=== PATIENT | female | born 1950 | race Caucasian/White ===

== ENCOUNTER → 2019-06-28 | Outpatient (CLI) | payer OTHER | END | disposition home or self-care (01) | LOC: RAH 15:45 | PROVIDERS: ATTEND Nurse Practitioner Family | DX: Z12.31 Encounter for screening mammogram for malignant neoplasm of breast (principal) | CPT/HCPCS: 77067 ==

== ENCOUNTER 2019-08-06 09:52 | Observation (INO) | payer OTHER ==
[~2019-08-06] VITALS: Ht 165.1 cm; Wt 83.9 kg
[2019-08-06 10:24] LABS: BASOPHILS % (AUTO) 0.4 % (0.0-5.0); HEMATOCRIT 41.2 % (36-48); MEAN CORPUSCULAR HGB CONC 34.9 g/dL (32.0-36.0); MONOCYTES % (AUTO) 6.4 % (3.0-13.0); NEUTROPHILS % (AUTO) 77.2 % (40.0-77.0); PLATELET COUNT (AUTO) 186 K/uL (130-400); RED CELL DISTRIBUTION WIDTH 13.7 % (11.0-15.5); WHITE BLOOD COUNT (AUTO) 8.3 K/uL (4.8-10.8)
[2019-08-06 10:33] LABS: CREATININE 0.9 mg/dL (0.5-1.5); POTASSIUM 3.8 mmol/L (3.5-5.1)
[2019-08-06 10:35] LABS: INR 0.97 (0.85-1.15); PARTIAL THROMBOPLASTIN TIME 26.7 SEC (26.3-35.5); PROTHROMBIN TIME 10.2 SEC (9.6-11.6)
[2019-08-06 10:40] LABS: ALBUMIN 4.1 g/dL (3.5-5.0); BILIRUBIN,TOTAL 0.4 mg/dL (0.2-1.0); TOTAL PROTEIN, SERUM 7.9 g/dL (6.0-8.3)
[2019-08-06] MEDS ORDERED: MORPHINE SULFATE 4 MG/1ML SYG ONE (10:53)
[2019-08-06] MEDS ORDERED: IOHEXOL-350 75 ML VIAL IV ONE (15:10)
[2019-08-06] MEDS ORDERED: HYDRALAZINE HCL 20 MG/ML VIAL IV PRN (16:30)
[2019-08-06] MEDS ORDERED: ACETAMINOPHEN 325 MG TAB PO PRN (16:30)
[2019-08-06] MEDS ORDERED: ONDANSETRON HCL 4 MG/2 ML VIAL IV PRN (16:30)
[2019-08-06] MEDS ORDERED: MORPHINE SULFATE 2 MG/ML 1ML SYG IV PRN (16:30)
[2019-08-06 16:48] LABS: CHOLESTEROL 198 mg/dL (<200); HDL CHOLESTEROL 40 mg/dL (35-85); LDL DIRECT 139 mg/dL (0-99); TRIGLYCERIDES 130 mg/dL (30-200)
[2019-08-06 16:56] LABS: CREATINE KINASE, TOTAL 71 U/L (21-232); MYOGLOBIN 41 ng/mL (10-92); TROPONIN I < 0.04 ng/mL (0.00-0.06)
[2019-08-06 19:37] LABS: HEMOGLOBIN A1C 5.4 % (4.0-6.0)
[2019-08-06] MEDS ORDERED: ONDANSETRON HCL 4 MG/2 ML VIAL ONE (20:28)
[2019-08-06 21:00] VITALS: BP 149/78
--- NOTE | 2019-08-06 21:00 | NUR ---
NURSING NOTE pt arrived to floor.Pt admitted for CP to rule out ACS. pt denies any chest pain or SOB at this time.
[2019-08-06] MEDS: ASPIRIN 325 MG TABLET PO SCH (21:50)
[2019-08-06] MEDS: FAMOTIDINE/PF 20 MG/2 ML VIAL IV SCH (21:53)
[2019-08-06] MEDS ORDERED: NAPR-1023 PO (22:53)
[2019-08-06] MEDS ORDERED: CHOL200074 PO (22:53)
[2019-08-06] MEDS ORDERED: ASPI-555 PO (22:53)
[2019-08-06] MEDS ORDERED: DOCU-116 PO (22:53)
[2019-08-06 23:39] VITALS: BP 141/78
[2019-08-07 01:06] LABS: CREATINE KINASE, TOTAL 49 U/L (21-232); MYOGLOBIN 28 ng/mL (10-92); TROPONIN I < 0.04 ng/mL (0.00-0.06)
[2019-08-07 03:40] VITALS: BP 125/78
[2019-08-07 05:05] LABS: BASOPHILS % (AUTO) 0.5 % (0.0-5.0); EOSINOPHILS % (AUTO) 1.9 % (0.0-8.0); HEMATOCRIT 40.9 % (36-48); MEAN CORPUSCULAR HEMOGLOBIN 29.8 pg (27.0-33.0); MEAN CORPUSCULAR HGB CONC 34.5 g/dL (32.0-36.0); MEAN CORPUSCULAR VOLUME 86.5 fL (79-99); MONOCYTES % (AUTO) 10.1 % (3.0-13.0); NEUTROPHILS % (AUTO) 53.5 % (40.0-77.0); PLATELET COUNT (AUTO) 148 K/uL (130-400); RED BLOOD CELL COUNT(AUTO) 4.73 MIL/uL (4.00-5.50); RED CELL DISTRIBUTION WIDTH 13.6 % (11.0-15.5); WHITE BLOOD COUNT (AUTO) 6.9 K/uL (4.8-10.8)
[2019-08-07 05:38] LABS: POTASSIUM 3.8 mmol/L (3.5-5.1)
[2019-08-07] MEDS ORDERED: KETOROLAC TROMETHAMINE 15MG/ML ONE (06:36)
[2019-08-07] MEDS ORDERED: KETOROLAC TROMETHAMINE 15MG/ML IV SCH (07:37)
[2019-08-07 08:00] VITALS: BP 120/47
[2019-08-07] MEDS: ASPIRIN 325 MG TABLET PO SCH (09:00)
[2019-08-07] MEDS ORDERED: ENOXAPARIN SODIUM 40 MG/0.4 ML SYRINGE SQ SCH (09:00)
[2019-08-07] MEDS: FAMOTIDINE/PF 20 MG/2 ML VIAL IV SCH (10:20)
[2019-08-07 11:00] VITALS: BP 140/83
[2019-08-07] MEDS ORDERED: DOCUSATE SODIUM 100 MG CAP PO SCH (12:00)
--- NOTE | 2019-08-07 15:10 | NUR ---
DISCHARGE PATIENT GIVEN DISCHARGE INSTRUCTIONS VIA TEACH BACK. 20G PIV TO RAC DISCONTINUED, TIP INTACT. PATIENT TO MAKE F/U APPOINTMENTS WITH DR. NATALIE WALSH [facility] AND [facility]. NO RX GIVEN. TELE REMOVED, RETURNED TO TELEMETRY. PATIENT STABLE AT THIS TIME. PATIENT WALKED TO [facility] ACCOMPANIED BY SPOUSE AND GEOPHYSICS PROFESSOR, ALEKSEY.
== END 2019-08-07 15:07 | disposition home or self-care (01) ==
LOC: EDH 09:52 → EDHIP 16:24 → 4CH 20:15
PROVIDERS: ADMIT Hospitalist; ATTEND Hospitalist
DX: R07.89 Other chest pain (principal); R06.09 Other forms of dyspnea; R94.31 Abnormal electrocardiogram [ECG] [EKG]; I10 Essential (primary) hypertension; E78.5 Hyperlipidemia, unspecified; M54.2 Cervicalgia; Z87.891 Personal history of nicotine dependence; Z90.49 Acquired absence of other specified parts of digestive tract; Z90.710 Acquired absence of both cervix and uterus; Z90.722 Acquired absence of ovaries, bilateral; Z88.1 Allergy status to other antibiotic agents; Z88.5 Allergy status to narcotic agent; Z88.6 Allergy status to analgesic agent; Z88.8 Allergy status to other drugs, medicaments and biological substances
CPT/HCPCS: 36415 ×2; 71045; 71275; 72040; 80048; 80053; 80061; 82550 ×3; 83036; 83874 ×2; 83880; 84484 ×3; 85025 ×2; 85378; 85610; 85730; 93005 ×2; 93970; 96374; 96375; 96376; 99284; G0378 ×23; J1885; J2270; J2405 ×2; J3490 ×2; Q9967; J1650

== ENCOUNTER 2019-09-14 07:01 | Observation (INO) | payer OTHER ==
[~2019-09-14] VITALS: Ht 167.6 cm; Wt 83.5 kg
[~2019-09-14 07:01] MED LIST: ASPI-555 PO; CHOL200074 PO; DOCU-116 PO; NAPR-1023 PO
[2019-09-14] MEDS ORDERED: ASPIRIN 325 MG TABLET ONE (07:36)
[2019-09-14] MEDS ORDERED: NITROGLYCERIN 1GM/1 INCH PACKET TD ONE (07:36)
[2019-09-14 07:49] LABS: CREATININE 0.8 mg/dL (0.5-1.5); POTASSIUM 4.4 mmol/L (3.5-5.1)
[2019-09-14 07:52] LABS: INR 0.94 (0.85-1.15); PARTIAL THROMBOPLASTIN TIME 20.9 SEC (26.3-35.5); PROTHROMBIN TIME 9.9 SEC (9.6-11.6)
[2019-09-14] MEDS ORDERED: FENTANYL CITRATE PF 50 MCG/1 ML 2ML VIAL ONE (07:52)
[2019-09-14] MEDS ORDERED: ENOXAPARIN SODIUM 100 MG/1 ML SQ ONE (07:54)
[2019-09-14 07:55] LABS: BILIRUBIN,TOTAL 0.7 mg/dL (0.2-1.0); TOTAL PROTEIN, SERUM 7.6 g/dL (6.0-8.3)
[2019-09-14 07:56] LABS: BASOPHILS % (AUTO) 0.5 % (0.0-5.0); EOSINOPHILS % (AUTO) 2.1 % (0.0-8.0); HEMATOCRIT 40.6 % (36-48); LYMPHOCYTES % (AUTO) 11.8 % (21.0-51.0); MEAN CORPUSCULAR HEMOGLOBIN 29.8 pg (27.0-33.0); MEAN CORPUSCULAR HGB CONC 34.7 g/dL (32.0-36.0); MEAN CORPUSCULAR VOLUME 85.9 fL (79-99); NEUTROPHILS % (AUTO) 77.6 % (40.0-77.0); PLATELET COUNT (AUTO) 149 K/uL (130-400); RED BLOOD CELL COUNT(AUTO) 4.73 MIL/uL (4.00-5.50); RED CELL DISTRIBUTION WIDTH 13.5 % (11.0-15.5); WHITE BLOOD COUNT (AUTO) 10.9 K/uL (4.8-10.8)
[2019-09-14 08:01] LABS: B-TYPE NATRIURETIC PEPTIDE 22 pg/mL (0-100)
[2019-09-14] MEDS ORDERED: MORPHINE SULFATE 2 MG/ML 1ML SYG ONE ×2 (08:49→16:22)
[2019-09-14] MEDS ORDERED: ONDANSETRON HCL 4 MG/2 ML VIAL IV PRN (09:15)
[2019-09-14] MEDS ORDERED: ACETAMINOPHEN 325 MG TAB PO PRN ×2 (09:15)
[2019-09-14] MEDS: NITROGLYCERIN 1GM/1 INCH PACKET TD SCH ×2 (09:15→16:31)
[2019-09-14] MEDS ORDERED: NITROGLYCERIN 0.4 MG SL TAB SL PRN (09:15)
[2019-09-14] MEDS ORDERED: MORPHINE SULFATE 2 MG/ML 1ML SYG IV PRN (09:15)
[2019-09-14 09:40] LABS: HEMOGLOBIN A1C 5.4 % (4.0-6.0)
[2019-09-14 10:11] LABS: CHOLESTEROL 204 mg/dL (<200); CREATINE KINASE, TOTAL 57 U/L (21-232); HDL CHOLESTEROL 40 mg/dL (35-85); LDL DIRECT 141 mg/dL (0-99); MYOGLOBIN 30 ng/mL (10-92); TRIGLYCERIDES 91 mg/dL (30-200); TROPONIN I < 0.04 ng/mL (0.00-0.06)
[2019-09-14] MEDS ORDERED: FAMOTIDINE/PF 20 MG/2 ML VIAL IV ONE (10:14)
[2019-09-14] MEDS ORDERED: METOPROLOL TARTRATE 25 MG TAB ONE (10:14)
[2019-09-14 11:45] LABS: APPEARANCE,URINE Clear (CLEAR); BILIRUBIN,URINE Negative (NEGATIVE); COLOR,URINE Yellow (YELLOW); GLUCOSE, URINE (UA) Negative (NEGATIVE); KETONES,URINE Negative (NEGATIVE); LEUKOCYTE ESTERASE ,URINE Negative (NEGATIVE); NITRATE,URINE Negative (NEGATIVE); OCCULT BLOOD,URINE Negative (NEGATIVE); PROTEIN,URINE Negative (NEGATIVE); UROBILINOGEN,URINE 0.2 mg/dL (0.2-1.0)
[2019-09-14] MEDS ORDERED: REGADENOSON 0.4 MG/5 ML PF SYG IVP SCH (12:45)
[2019-09-14 16:00] VITALS: BP 111/63
[2019-09-14 17:14] LABS: CREATINE KINASE, TOTAL 44 U/L (21-232); MYOGLOBIN 49 ng/mL (10-92); TROPONIN I < 0.04 ng/mL (0.00-0.06)
[2019-09-14 19:00] VITALS: BP 111/67
[2019-09-14] MEDS: MORPHINE SULFATE 2 MG/ML 1ML SYG IV PRN ×2 (20:10→21:51)
[2019-09-14] MEDS: FAMOTIDINE/PF 20 MG/2 ML VIAL IV SCH (20:11)
[2019-09-14] MEDS: METOPROLOL TARTRATE 25 MG TAB PO SCH (20:14)
[2019-09-14] MEDS ORDERED: SIMVASTATIN 20 MG TABLET PO SCH (21:00)
[2019-09-14] MEDS: SODIUM CHLORIDE 0.9% 1000ML 1,000 ML IV SCH (21:45)
[2019-09-14] MEDS ORDERED: MORPHINE SULFATE 4 MG/1ML SYG IV PRN (21:45)
[2019-09-14 22:54] LABS: CREATINE KINASE, TOTAL 54 U/L (21-232); MYOGLOBIN 38 ng/mL (10-92); TROPONIN I < 0.04 ng/mL (0.00-0.06)
[2019-09-14 23:31] VITALS: BP 108/61
[2019-09-15] MEDS: NITROGLYCERIN 1GM/1 INCH PACKET TD SCH ×2 (01:53→09:21)
[2019-09-15] MEDS: SODIUM CHLORIDE 0.9% 1000ML 1,000 ML IV SCH ×2 (03:23→08:30)
[2019-09-15 04:00] VITALS: BP 112/69
[2019-09-15 06:34] LABS: BASOPHILS % (AUTO) 0.5 % (0.0-5.0); EOSINOPHILS % (AUTO) 0.5 % (0.0-8.0); HEMATOCRIT 37.1 % (36-48); LYMPHOCYTES % (AUTO) 20.3 % (21.0-51.0); MEAN CORPUSCULAR HEMOGLOBIN 29.9 pg (27.0-33.0); MONOCYTES % (AUTO) 13.8 % (3.0-13.0); NEUTROPHILS % (AUTO) 64.9 % (40.0-77.0); PLATELET COUNT (AUTO) 148 K/uL (130-400); RED BLOOD CELL COUNT(AUTO) 4.22 MIL/uL (4.00-5.50); RED CELL DISTRIBUTION WIDTH 13.4 % (11.0-15.5); WHITE BLOOD COUNT (AUTO) 10.4 K/uL (4.8-10.8)
[2019-09-15 07:00] LABS: CREATINE KINASE, TOTAL 36 U/L (21-232); MYOGLOBIN 39 ng/mL (10-92); TROPONIN I < 0.04 ng/mL (0.00-0.06)
--- NOTE | 2019-09-15 07:30 | NUR ---
NOTE AAOX3. C/O CHEST PAIN SAME WHEN SHE CAME IN BUT LESS INTENSE. STATES IT STARTED YESTERDAY AND HAS NOT GONE AWAY COMPLETELY. BBS CLEAR TO ALL LOBES. TELEMETRY SR NO CHANGES IN RHYTHM AND WITH CARDIAC ENZYMES NEGATIVE AND LEXISCAN NEGATIVE. PATIENT HAS PLACED HERSELF NPO BECAUSE SHE BELIEVES SHE WILL HAB OR NEED A HEART CATH.
[2019-09-15 07:55] VITALS: BP 100/63
[2019-09-15] MEDS ORDERED: ASPIRIN 325 MG TABLET PO SCH (09:00)
[2019-09-15] MEDS ORDERED: ENOXAPARIN SODIUM 30 MG/0.3 ML SQ SCH (09:00)
[2019-09-15] MEDS ORDERED: KETOROLAC TROMETHAMINE 30MG/ML IV SCH (09:00)
[2019-09-15] MEDS: FAMOTIDINE/PF 20 MG/2 ML VIAL IV SCH (09:20)
[2019-09-15] MEDS: METOPROLOL TARTRATE 25 MG TAB PO SCH (09:22)
--- NOTE | 2019-09-15 10:00 | NUR ---
NOTE HOSPITALIST AND [employer] ARCHITECT HAVE STOPPED BY AND SPOKE TO HER. APPEARS TO BE A MUSCULOSKELETAL PROBLEM ACCORDING TO HOSPITALIST AND [employer] ARCHITECT FOR SHE RESPONDED VERY WELL TO TORADOL IV. SHE WILL STILL HAVE 2D ECHO DONE TODAY AND SHE IS A POSSIBLE DC HOME TODAY ACCORDING TO HOSPITALIST.
[2019-09-15 11:12] VITALS: BP 107/58
--- NOTE | 2019-09-15 15:00 | NUR ---
NOTE WAS INFORMED BY MY DIRECTOR JUDIT THAT PATIENT DOES NOT HAVE TO STAY FOR RESULTS FROM 2 D ECHO SHE WILL FOLLOW UP WITH [employer] LEAD[facility] OUTPATIENT.
--- NOTE | 2019-09-15 16:10 | NUR ---
NOTE DISCHARGE INSTRUCTIONS GIVEN TO PATIENT AT THIS TIME. REFER TO DC SUMMARY FOR DETAILS. STABLE UPON DISCHARGE.
== END 2019-09-15 16:24 | disposition home or self-care (01) ==
LOC: EDH 07:01 → EDHIP 08:30 → 4CH 16:12
PROVIDERS: ADMIT Internal Medicine; ATTEND Internal Medicine
DX: I20.0 Unstable angina (principal); I10 Essential (primary) hypertension; R07.89 Other chest pain; E78.5 Hyperlipidemia, unspecified; G89.29 Other chronic pain; M79.609 Pain in unspecified limb; Z87.891 Personal history of nicotine dependence; Z90.49 Acquired absence of other specified parts of digestive tract; Z90.710 Acquired absence of both cervix and uterus; Z79.82 Long term (current) use of aspirin; Z79.899 Other long term (current) drug therapy; Z88.1 Allergy status to other antibiotic agents; Z88.5 Allergy status to narcotic agent; Z88.8 Allergy status to other drugs, medicaments and biological substances; Z88.6 Allergy status to analgesic agent
CPT/HCPCS: 36415 ×2; 71045; 78452; 80053; 80061; 81003; 82550 ×5; 83036; 83874 ×4; 83880; 84484 ×5; 85025 ×2; 85378; 85610; 85730; 93005 ×5; 93017; 93306; 96372; 96374; 96375 ×2; 96376 ×2; 99284; A9500 ×2; G0378 ×27; J1650 ×2; J1885; J2270; J2405; J2785; J3010; J3490 ×3

== ENCOUNTER → 2024-01-26 | Outpatient (CLI) | payer OTHER ==
[~2024-01-26] MED LIST changes: +ALEN5TAB11 PO; +AMIO200T68 PO; -ASPI-555 PO; +ASPI-556 PO; +ATOR40TA69 PO; +CALC-885 PO; +FAMO20TA8 PO; +FURO20TA4 PO; +IPRAHFA IH; +LOSA25TA41 PO; +METO-408 PO; +MONT-39 PO; -NAPR-1023 PO; +OMEP20CA12 PO; +POTA20LI52 PO; +SELE200T27 PO; +TRAM50TA4 PO
== END | disposition home or self-care (01) ==
LOC: RAH 15:17
PROVIDERS: ATTEND Physician Assistant Medical
DX: Z12.31 Encounter for screening mammogram for malignant neoplasm of breast (principal)
CPT/HCPCS: 77067